=== PATIENT | female | born 1980 | race Caucasian/White ===

== ENCOUNTER 2019-05-14 14:15 | Emergency (ER) | payer OTHER ==
[2019-05-14 16:05] LABS: Basophils # (A) 0.1 k/uL (0-0.2); Basophils % (A) 1 %; Eosinophils # (A) 0.2 k/uL (0-0.7); Eosinophils % (A) 2 %; HCT 47.2 % (34.0-46.0); HGB 15.3 gm/dL (11.4-16.0); Lymphocytes # (A) 1.6 k/uL (1.0-4.8); Lymphocytes % (A) 13 %; MCH 28.2 pg (25.0-35.0); MCHC 32.5 g/dL (31.0-37.0); MCV 86.8 fL (80.0-100.0); Mean Platelet Volume 6.7; Monocytes # (A) 0.4 k/uL (0-1.0); Monocytes % (A) 4 %; Neutrophils % (A) 81 %; Platelet Count 330 k/uL (150-450); RBC 5.43 m/uL (3.80-5.40); RDW 14.5 % (11.5-15.5); WBC 12.4 k/uL (3.8-10.6)
[2019-05-14 16:12] LABS: Appearance,Urine Turbid (Clear); Bilirubin,Urine Negative (Negative); Blood,Urine Large (Negative); Color,Urine Light Red; Glucose,Urine (UA) Negative (Negative); Ketones,Urine Trace (Negative); Leukocyte Esterase,Urine Moderate (Negative); Mucus,Urine Many /hpf; Nitrite,Urine Negative (Negative); PH, Urine 5.5 (5.0-8.0); Protein,Urine 1+ (Negative); RBC,Urine >182 /hpf (0-5); Specific Gravity,Urine 1.026 (1.001-1.035); Squamous Epithelial Cell,Urine 70 /hpf (0-4); WBC,Urine 35 /hpf (0-5)
[2019-05-14] MEDS ORDERED: ONDANSETRON 4 MG/2 ML VIAL IVP STA (16:15)
[2019-05-14] MEDS ORDERED: KETOROLAC 30 MG/ML 1 ML VIAL IVP STA ×2 (16:15→19:41)
[2019-05-14] MEDS ORDERED: SODIUM CHLORIDE 0.9% 1,000 ML IV STA (16:15)
[2019-05-14 16:24] LABS: ALT 16 U/L (9-52); AST 19 U/L (14-36); African American GFR (CKD) >90 (>60 ml/min/1.73 sqM); Albumin 4.5 g/dL (3.5-5.0); Alkaline Phosphatase 83 U/L (38-126); Amylase 59 U/L (30-110); Anion Gap 9 mmol/L; Blood Urea Nitrogen 9 mg/dL (7-17); Calcium 9.5 mg/dL (8.4-10.2); Carbon Dioxide 22 mmol/L (22-30); Chloride 110 mmol/L (98-107); Glucose 113 mg/dL (74-99); Lipase 114 U/L (23-300); Potassium 4.1 mmol/L (3.5-5.1); Sodium 141 mmol/L (137-145); Total Bilirubin 0.5 mg/dL (0.2-1.3); Total Protein 7.5 g/dL (6.3-8.2)
--- NOTE | 2019-05-14 16:28 | ED ---
Abdominal Pain HPI <Hilario Condon - Last Filed: 05/14/19 20:26> - General Source: patient Mode of arrival: ambulatory Limitations: no limitations <Echo Garcia - Last Filed: 05/14/19 21:08> - General Chief Complaint: Abdominal Pain Stated Complaint: Right Side pain, Nausea Time Seen by Provider: 05/14/19 16:05 - History of Present Illness Initial Comments: Patient is a 38-year-old female presenting to the ER with complaints of right upper and lower quadrant pain since last night. Patient states she had upper right quadrant pain yesterday but it was tolerable and went away. She states she woke up this morning feeling okay and then about 4 hours ago developed lower right quadrant pain that has been constant and severe. Patient admits one episode of vomiting and nausea. Patient states she has a history of one C- section and endometriosis and also a scope that they removed one fallopian tube. Patient denies fever, chills, chest pain, shortness of breath, diarrhea. Patient's last BM was today and was normal. (Echo Garcia) - Related Data Previous Rx's Medication Instructions Recorded Ketorolac [Toradol] 10 mg PO Q8HR #15 tab 05/14/19 Levofloxacin [Levaquin] 500 mg PO DAILY 5 Days #5 tab 05/14/19 Metoclopramide [Reglan] 10 mg PO TID PRN #15 tab 05/14/19 Tamsulosin [Flomax] 0.4 mg PO DAILY #7 cap 05/14/19 Allergies Allergy/AdvReac Type Severity Reaction Status Date / Time acetaminophen [From Vicodin] Allergy Unknown Verified 05/14/19 15:15 hydrocodone [From Vicodin] Allergy Unknown Verified 05/14/19 15:15 albuterol AdvReac Dyspnea Verified 05/14/19 15:15 codeine AdvReac Hallucinati Verified 05/14/19 15:15 ons Review of Systems ROS Other: All systems not noted in ROS Statement are negative. <Hilario Condon - Last Filed: 05/14/19 20:26> ROS Other: All systems not noted in ROS Statement are negative. <Echo Garcia - Last Filed: 05/14/19 21:08> ROS Statement: Those systems with pertinent positive or pertinent negative responses have been documented in the HPI. Past Medical History Additional Past Medical History / Comment(s): endometerosis, ovarian cyst History of Any Multi-Drug Resistant Organisms: None Reported Past Surgical History: Adenoidectomy, Tonsillectomy Past Psychological History: No Psychological Hx Reported Smoking Status: Current every day smoker Past Alcohol Use History: None Reported Past Drug Use History: None Reported <RadhaEcho [place] - Last Filed: 05/14/19 21:08> General Exam Limitations: no limitations <RadhaEcho L - Last Filed: 05/14/19 21:08> - General Exam Comments Initial Comments: GENERAL: Well-appearing, well-nourished and in no acute distress, but appears in pain. HEAD: Atraumatic, normocephalic. EYES: Pupils equal round and reactive to light, extraocular movements intact, sclera anicteric, conjunctiva are normal. ENT: TMs normal, nares patent, oropharynx clear without exudates. Moist mucous membranes. NECK: Normal range of motion, supple without lymphadenopathy or JVD. LUNGS: Breath sounds clear to auscultation bilaterally and equal. No wheezes rales or rhonchi. HEART: Regular rate and rhythm without murmurs, rubs or gallops. ABDOMEN: TTP right upper quadrant and more severe tenderness of the right lower quadrant. Soft, normoactive bowel sounds. No guarding, no rebound. No masses appreciated. No CVA tenderness. : Deferred EXTREMITIES: Normal range of motion, no pitting or edema. No clubbing or cyano sis. NEUROLOGICAL: Cranial nerves II through XII grossly intact. Normal speech, normal gait. PSYCH: Normal mood, normal affect. SKIN: Warm, Dry, normal turgor, no rashes or lesions noted. (Echo Garcia) Course Vital Signs 05/14/19 05/14/19 05/14/19 15:12 16:14 18:00 Temperature 97.7 F Pulse Rate 80 Respiratory 16 16 18 Rate Blood Pressure 117/63 O2 Sat by Pulse 98 Oximetry 05/14/19 19:41 Temperature Pulse Rate Respiratory 16 Rate Blood Pressure O2 Sat by Pulse Oximetry Medical Decision Making - Lab Data Result diagrams: 05/14/19 15:51 05/14/19 15:51 <Hilario Condon - Last Filed: 05/14/19 20:26> - Lab Data Result diagrams: 05/14/19 15:51 05/14/19 15:51 <Echo Garcia - Last Filed: 05/14/19 21:08> - Medical Decision Making Medical decision making; to 38-year-old female complains of discomfort this started yesterday in the right flank area. At around 11 AM this morning she developed acute discomfort with nausea and vomiting and diaphoresis. The pain came on left. The patient's labs show white count 12.4 hemoglobin 15 hematocrit 47 BUN 9 creatinine 0.88 GFR 84. Urine shows large amount of blood, leukoesterase positive greater than 180 reds, possible contamination as a report 70 squamous cells. CAT scan was done and the radiologist's impression is there is mild plus right- sided hydronephrosis and hydroureter down to an obstructing mid ureteral calcifi cation measuring 3.5 mm seen at the level of the superior iliac crest. As reported by Dr. Master Keith I discussed the case with on-call urologist Dr. Curtis. Patient be placed on Levaquin, Flomax and advised to strain the urine. Call follow-up in office on Friday or return emergency room as needed. We did discuss if the patient develops a fever chills to return emergency room. Dr. Condon (Hilario Condon) Patient is a 38-year-old female complaining of right upper and lower quadrant pain since yesterday. Patient states she had right upper quadrant pain that started last night, woke up this morning felt better and then started developing right severe lower quadrant pain along was associated nausea and vomiting 1. Patient admits to history of one and endometriosis. Patient denies fever, chills. CBC shows white count of 12. UA shows large amount of blood, leukocytes esterase, greater than 180 RBCs. There is mild right-sided hydronephrosis and hydroureter with an obstructing mid ureteral stone measuring 3.5 mm. Case was discussed with Dr. Condon who discussed with Dr. Hsieh. Patient is given 1g of Rocephin. Patient will be discharged home with Levaquin, Flomax, pain meds, Reglan. Patient will follow up with urology on Friday. Return parameters were discussed. Patient is okay with this plan. Patient vitals have been stable during stay. (Echo Garcia) - Lab Data Lab Results 05/14/19 05/14/19 05/14/19 Range/Units 15:51 15:51 15:51 WBC 12.4 H (3.8-10.6) k/uL RBC 5.43 H (3.80-5.40) m/uL Hgb 15.3 (11.4-16.0) gm/dL Hct 47.2 H (34.0-46.0) % MCV 86.8 (80.0-100.0) fL MCH 28.2 (25.0-35.0) pg MCHC 32.5 (31.0-37.0) g/dL RDW 14.5 (11.5-15.5) % Plt Count 330 (150-450) k/uL Neutrophils % 81 % Lymphocytes % 13 % Monocytes % 4 % Eosinophils % 2 % Basophils % 1 % Neutrophils # 10.0 H (1.3-7.7) k/uL Lymphocytes # 1.6 (1.0-4.8) k/uL Monocytes # 0.4 (0-1.0) k/uL Eosinophils # 0.2 (0-0.7) k/uL Basophils # 0.1 (0-0.2) k/uL Sodium 141 (137-145) mmol/L Potassium 4.1 (3.5-5.1) mmol/L Chloride 110 H (98-107) mmol/L Carbon Dioxide 22 (22-30) mmol/L Anion Gap 9 mmol/L BUN 9 (7-17) mg/dL Creatinine 0.88 (0.52-1.04) mg/dL Est GFR (CKD-EPI)AfAm >90 (>60 ml/min/1.73 sqM) Est GFR (CKD-EPI)NonAf 84 (>60 ml/min/1.73 sqM) Glucose 113 H (74-99) mg/dL Calcium 9.5 (8.4-10.2) mg/dL Total Bilirubin 0.5 (0.2-1.3) mg/dL AST 19 (14-36) U/L ALT 16 (9-52) U/L Alkaline Phosphatase 83 (38-126) U/L Total Protein 7.5 (6.3-8.2) g/dL Albumin 4.5 (3.5-5.0) g/dL Amylase 59 (30-110) U/L Lipase 114 (23-300) U/L Urine Color Light Red Urine Appearance Turbid H (Clear) Urine pH 5.5 (5.0-8.0) Ur Specific [place] 1.026 (1.001-1.035) Urine Protein 1+ H (Negative) Urine Glucose (UA) Negative (Negative) Urine Ketones Trace H (Negative) Urine Blood Large H (Negative) Urine Nitrite Negative (Negative) Urine Bilirubin Negative (Negative) Urine Urobilinogen 2.0 (<2.0) mg/dL Ur Leukocyte Esterase Moderate H (Negative) Urine RBC >182 H (0-5) /hpf Urine WBC 35 H (0-5) /hpf Ur Squamous Epith Cells 70 H (0-4) /hpf Urine Mucus Many H (None) /hpf Urine HCG, Qual (Not Detectd) 05/14/19 Range/Units 15:51 WBC (3.8-10.6) k/uL RBC (3.80-5.40) m/uL Hgb (11.4-16.0) gm/dL Hct (34.0-46.0) % MCV (80.0-100.0) fL MCH (25.0-35.0) pg MCHC (31.0-37.0) g/dL RDW (11.5-15.5) % Plt Count (150-450) k/uL Neutrophils % % Lymphocytes % % Monocytes % % Eosinophils % % Basophils % % Neutrophils # (1.3-7.7) k/uL Lymphocytes # (1.0-4.8) k/uL Monocytes # (0-1.0) k/uL Eosinophils # (0-0.7) k/uL Basophils # (0-0.2) k/uL Sodium (137-145) mmol/L Potassium (3.5-5.1) mmol/L Chloride (98-107) mmol/L Carbon Dioxide (22-30) mmol/L Anion Gap mmol/L BUN (7-17) mg/dL Creatinine (0.52-1.04) mg/dL Est GFR (CKD-EPI)AfAm (>60 ml/min/1.73 sqM) Est GFR (CKD-EPI)NonAf (>60 ml/min/1.73 sqM) Glucose (74-99) mg/dL Calcium (8.4-10.2) mg/dL Total Bilirubin (0.2-1.3) mg/dL AST (14-36) U/L ALT (9-52) U/L Alkaline Phosphatase (38-126) U/L Total Protein (6.3-8.2) g/dL Albumin (3.5-5.0) g/dL Amylase (30-110) U/L Lipase (23-300) U/L Urine Color Urine Appearance (Clear) Urine pH (5.0-8.0) Ur Specific [place] (1.001-1.035) Urine Protein (Negative) Urine Glucose (UA) (Negative) Urine Ketones (Negative) Urine Blood (Negative) Urine Nitrite (Negative) Urine Bilirubin (Negative) Urine Urobilinogen (<2.0) mg/dL Ur Leukocyte Esterase (Negative) Urine RBC (0-5) /hpf Urine WBC (0-5) /hpf Ur Squamous Epith Cells (0-4) /hpf Urine Mucus (None) /hpf Urine HCG, Qual Not Detected (Not Detectd) Disposition <Hilario Condon - Last Filed: 05/14/19 20:26> Is patient prescribed a controlled substance at d/c from ED?: No <Echo Garcia - Last Filed: 05/14/19 21:08> Clinical Impression: Calculus of kidney, UTI (urinary tract infection) Disposition: HOME SELF-CARE Condition: Stable Instructions (If sedation given, give patient instructions): Kidney Stones (ED) Additional Instructions: Please return to the Emergency Department if symptoms worsen or any other concerns. Follow up with urology in 1 to 3 days. Prescriptions: Tamsulosin [Flomax] 0.4 mg PO DAILY #7 cap Levofloxacin [Levaquin] 500 mg PO DAILY 5 Days #5 tab Metoclopramide [Reglan] 10 mg PO TID PRN #15 tab PRN Reason: GERD Ketorolac [Toradol] 10 mg PO Q8HR #15 tab Referrals: None,Stated [Primary Care Provider] - 1-2 days Shane Curtis MD [STAFF PHYSICIAN] - 1-2 days
[2019-05-14 19:42] VITALS: RESP 16
--- NOTE | 2019-05-14 20:03 | CT ---
EXAMINATION TYPE: CT abdomen pelvis w con DATE OF EXAM: 05/14/2019 COMPARISON: None HISTORY: abdominal pain. hx of endometriosis. CT DLP: 1327.2 mGycm Automated exposure control for dose reduction was used. TECHNIQUE: Helical acquisition of images was performed from the lung bases through the pelvis. CONTRAST: Performed without Oral Contrast and with IV Contrast, patient injected with 100 mL of Isovu e 300. FINDINGS: LUNG BASES: No significant abnormality is appreciated. LIVER/GB: No significant abnormality is appreciated. PANCREAS: No significant abnormality is seen. SPLEEN: No significant abnormality is seen. ADRENALS: No significant abnormality is seen. KIDNEYS AND URETERS AND BLADDER: There is mild-plus right-sided hydronephrosis and hydroureter down t o an obstructing mid ureteral calcification measuring 3.5 mm, seen at the level of the superior iliac crest. There is a 2 mm nonobstructing lower pole left renal calcification. FREE AIR: No free air is visualized. RETROPERITONEAL ADENOPATHY: None visualized REPRODUCTIVE ORGANS: No significant abnormality is seen URINARY BLADDER: No significant abnormality is seen. PELVIC ADENOPATHY: None visualized. OSSEOUS STRUCTURES: No significant abnormality is seen. BOWEL: No significant abnormality is seen. OTHER: No acute vascular findings. IMPRESSION: MILD-PLUS RIGHT OBSTRUCTIVE UROPATHY, SECONDARY TO MID URETERAL 3.5 MM CALCIFICATION.
[2019-05-14] MEDS ORDERED: cefTRIAXone 1,000 MG VIAL (IM USE) IM STA (20:25)
[2019-05-14 21:20] VITALS: BP 126/65; PULSE 72; TEMP 98.9
== END 2019-05-14 21:00 | disposition home or self-care (01) ==
LOC: EC 14:15
DX: N39.0 Urinary tract infection, site not specified (principal); N13.2 Hydronephrosis with renal and ureteral calculous obstruction; F17.200 Nicotine dependence, unspecified, uncomplicated; Z88.5 Allergy status to narcotic agent; Z88.6 Allergy status to analgesic agent; Z88.8 Allergy status to other drugs, medicaments and biological substances
CPT/HCPCS: 36415; 80053; 82150; 83690; 85025; 81001; 81025; 74177; 99284; 96374; 96375 ×2; 96361 ×4; 96372; J2405; J0696; J1885; Q9967

== ENCOUNTER → 2020-12-13 | Outpatient (CLI) | payer OTHER ==
--- NOTE | 2020-12-14 11:48 | MM ---
Reason for exam: screening (asymptomatic). History: Family history of breast cancer in paternal grandmother. Taking hormonal contraceptives. Physical Findings: A clinical breast exam by your physician is recommended on an annual basis and results should be correlated with mammographic findings. MG 3D Screening Mammo W/Cad Bilateral CC and MLO view(s) were taken. No prior studies available for comparison. There are scattered fibroglandular densities. Focal asymmetry right middle CC view. ASSESSMENT: Probably benign, BI-RAD 3 RECOMMENDATION: Follow-up diagnostic mammogram of the right breast in 6 months.
== END | disposition home or self-care (01) ==
LOC: RADMAMWWP 07:01
PROVIDERS: ATTEND Obstetrics & Gynecology
DX: Z12.31 Encounter for screening mammogram for malignant neoplasm of breast (principal)
CPT/HCPCS: 77063; 77067

== ENCOUNTER → 2021-06-15 | Outpatient (CLI) | payer OTHER ==
--- NOTE | 2021-06-18 09:36 | MM ---
Reason for exam: follow-up at short interval from prior study. Last mammogram was performed 6 months ago. History: Family history of breast cancer in paternal grandmother. Taking hormonal contraceptives for 5 years. Physical Findings: Nurse did not find any significant physical abnormalities on exam. MG 3D Diag Mammo W/Cad RT CC, MLO, and XCCL view(s) were taken of the right breast. Prior study comparison: December 13, 2020, bilateral MG 3d screening mammo w/cad. The breast tissue is heterogeneously dense. This may lower the sensitivity of mammography. There is no discrete abnormality including area of concern. No significant new findings when compared with previous films. These results were verbally communicated with the patient and result sheet given to the patient on 06/15/21. ASSESSMENT: Benign, BI-RAD 2 RECOMMENDATION: Return to routine screening mammogram schedule for both breasts. Back on schedule.
== END | disposition home or self-care (01) ==
LOC: RADMAMWWP 08:07
PROVIDERS: ATTEND Obstetrics & Gynecology
DX: R92.2 Inconclusive mammogram (principal); Z80.3 Family history of malignant neoplasm of breast; Z79.3 Long term (current) use of hormonal contraceptives
CPT/HCPCS: 77061; 77065

== ENCOUNTER → 2022-07-30 | Outpatient (CLI) | payer OTHER ==
--- NOTE | 2022-08-02 18:31 | MM ---
Reason for Exam: Screening (asymptomatic). Last mammogram was performed 1 year(s) and 8 month(s) ago. Patient History: Menarche at age 11. First Full-Term at age 21. Currently using Hormonal Contraceptives, for 5 years. Paternal grandmother had breast cancer. Risk Values: Cecilia 5 year model risk: 0.6%. NCI Lifetime model risk: 9.8%. Prior Study Comparison: 12/13/2020 Bilateral Screening Mammogram, [facility]. 06/15/2021 Right Diagnostic Mammogram, [facility]. Tissue Density: There are scattered fibroglandular densities. Findings: Analyzed By CAD. There is no suspicious group of microcalcifications or new suspicious mass in either breast. Overall Assessment: Negative, BI-RAD 1 Management: Screening Mammogram of both breasts in 1 year. A clinical breast exam by your physician is recommended on an annual basis and results should be correlated with mammographic findings. Electronically signed and approved by: Emmett Braxton DO
== END | disposition home or self-care (01) ==
LOC: RADMAMWWP 06:56
PROVIDERS: ATTEND Obstetrics & Gynecology
DX: Z12.31 Encounter for screening mammogram for malignant neoplasm of breast (principal); Z80.3 Family history of malignant neoplasm of breast
CPT/HCPCS: 77063; 77067

== ENCOUNTER → 2022-09-21 | Outpatient (CLI) | payer OTHER ==
[2022-09-22 09:13] LABS: ALT 12 U/L (8-44); AST 15 U/L (13-35); Chol/HDL Ratio 3.42 Ratio; LDL Cholesterol,Calculated 84.5 mg/dL (0.0-131.0); VLDL Calculation 16.68 mg/dL (5.00-40.00)
== END | disposition home or self-care (01) ==
LOC: LABWHC1 11:03
PROVIDERS: ATTEND Family Medicine
DX: E78.2 Mixed hyperlipidemia (principal)
CPT/HCPCS: 36415; 80061; 84450; 84460

== ENCOUNTER → 2023-04-19 | Outpatient (CLI) | payer OTHER ==
[2023-04-19 09:57] LABS: Basophils % (A) 1 %; Eosinophils # (A) 0.3 k/uL (0-0.7); Eosinophils % (A) 3 %; HCT 42.5 % (34.0-46.0); HGB 13.7 gm/dL (11.4-16.0); Lymphocytes # (A) 2.4 k/uL (1.0-4.8); Lymphocytes % (A) 33 %; MCHC 32.3 g/dL (31.0-37.0); MCV 86.7 fL (80.0-100.0); Mean Platelet Volume 7.2; Monocytes # (A) 0.3 k/uL (0-1.0); Monocytes % (A) 4 %; Neutrophils # (A) 4.2 k/uL (1.3-7.7); Neutrophils % (A) 58 %; Platelet Count 324 k/uL (150-450); RDW 15.1 % (11.5-15.5); WBC 7.3 k/uL (3.8-10.6)
[2023-04-20 09:25] LABS: Estimated Average Glucose 117 mg/dL
[2023-04-20 10:51] LABS: ALT 8 U/L; AST 12 U/L; African American GFR (CKD) >90; Albumin 4.1 d/dL; Albumin/Globulin Ratio 1.58 Ratio; Alkaline Phosphatase 89 U/L; BUN/Creat Ratio 9.14 Ratio; Blood Urea Nitrogen 6.4 mg/dL; Calcium 9.4 mg/dL; Carbon Dioxide 26.1 mmol/L; Chloride 105 mmol/L; Chol/HDL Ratio 3.34 Ratio; Globulin 2.6 d/dL; Glucose 102 mg/dL; LDL Cholesterol,Calculated 89.4 mg/dL; Non-African American GFR(CKD) >90; Potassium 4.1 mmol/L; Sodium 142 mmol/L; T4, Free (Free Thyroxine) 1.22 ng/dL; Total Bilirubin 0.4 mg/dL; Total Protein 6.7 d/dL
== END | disposition home or self-care (01) ==
LOC: LABWHC1 08:23
PROVIDERS: ATTEND Student in an Organized Health Care Education/Training Program
DX: E78.2 Mixed hyperlipidemia (principal); Z71.89 Other specified counseling
CPT/HCPCS: 36415; 80053; 80061; 82306; 83036; 84439; 84443; 85025

== ENCOUNTER → 2023-08-01 | Outpatient (CLI) | payer BC ==
[2023-08-01 11:23] LABS: Chol/HDL Ratio 5.31 Ratio; LDL Cholesterol,Calculated 150.9 mg/dL (0.0-131.0)
== END | disposition home or self-care (01) ==
LOC: LABWHC1 07:03
PROVIDERS: ATTEND Student in an Organized Health Care Education/Training Program
DX: E78.2 Mixed hyperlipidemia (principal)
CPT/HCPCS: 36415; 80061; 82306

== ENCOUNTER → 2023-11-29 | Outpatient (CLI) | payer BC ==
[2023-11-29 14:11] LABS: LDL Cholesterol,Calculated 91.9 mg/dL (0.0-131.0)
== END | disposition home or self-care (01) ==
LOC: LABWHC1 08:45
PROVIDERS: ATTEND Student in an Organized Health Care Education/Training Program
DX: E78.5 Hyperlipidemia, unspecified (principal)
CPT/HCPCS: 36415; 80061

== ENCOUNTER → 2024-10-13 | Outpatient (CLI) | payer BC ==
--- NOTE | 2024-10-15 13:09 | MM ---
Reason for Exam: Screening (asymptomatic). Last mammogram was performed 1 year(s) and 1 month(s) ago. Patient History: Menarche at age 11. First Full-Term at age 21. Currently using Hormonal Contraceptives, starting at age 35. Paternal grandmother had breast cancer. Risk Values: Cecilia 5 year model risk: 0.8%. NCI Lifetime model risk: 9.5%. Prior Study Comparison: 12/13/2020 Bilateral Screening Mammogram, [facility]. 06/15/2021 Right Diagnostic Mammogram, [facility]. 07/30/2022 Bilateral MG 3D screening mammo w/cad, [facility]. 08/29/2023 Bilateral MG screening mammo w CAD, [facility]. Tissue Density: There are scattered areas of fibroglandular density. Findings: Analyzed By CAD. Unchanged global asymmetry posterior right upper outer quadrant. There is no suspicious group of microcalcifications or new suspicious mass in either breast. Overall Assessment: Benign, BI-RAD 2 Management: Screening Mammogram of both breasts in 1 year. . Patient should continue monthly self-breast exams. A clinical breast exam by your physician is recommended on an annual basis. This exam should not preclude additional follow-up of suspicious palpable abnormalities. Note on Cecilia scores and lifetime risk: 1. A Cecilia score greater than 3% is considered moderate risk. If this is the case, consider specialist referral to assess eligibility for a risk reducing agent. 2. If overall lifetime risk for the development of breast cancer is 20% or higher, the patient may qualify for future screening with alternating mammogram and breast MRI. [facility], , 10/15/2024 1:06 PM. Electronically signed and approved by: Ran Spangler M.D. Radiologist
== END | disposition home or self-care (01) ==
LOC: RADMAMWWP 07:27
PROVIDERS: ATTEND Obstetrics & Gynecology
DX: Z12.31 Encounter for screening mammogram for malignant neoplasm of breast (principal); R92.323 Mammographic fibroglandular density, bilateral breasts; Z80.3 Family history of malignant neoplasm of breast
CPT/HCPCS: 77063; 77067